=== PATIENT | female | born 1950 | race African-American/Black ===

== ENCOUNTER 2018-05-05 12:24 | Emergency (ER) | payer OTHER, MEDICAID ==
[~2018-05-05] VITALS: Ht 162.6 cm; Wt 49.0 kg
[2018-05-05 12:37] VITALS: Ht 162.6 cm; Wt 49.0 kg
[2018-05-05 13:38] VITALS: BP 145/74
== END 2018-05-05 13:38 | disposition home or self-care (01) ==
LOC: ED 12:24
DX: S01.81XA Laceration without foreign body of other part of head, initial encounter (principal); W18.39XA Other fall on same level, initial encounter; Y93.89 Activity, other specified; Y92.89 Other specified places as the place of occurrence of the external cause; Y99.8 Other external cause status
CPT/HCPCS: 90715